=== PATIENT | male | born 1935 | race Caucasian/White ===

== ENCOUNTER 2021-08-21 08:22 | Inpatient (IN) | payer MEDICARE, BC ==
[2021-08-21 08:51] LABS: #Basophils 0.1 thou/uL (0.0-0.2); #Eosinphils 0.6 thou/uL (0.0-0.7); #Lymphocytes 3.5 thou/uL (1.20-3.40); #Monocytes 1.9 thou/uL (0.11-0.59); #Neutrophils 8.3 thou/uL (1.40-6.50); %Basophils 0.6 % (0.0-1.0); %Eosinophils 3.9 % (0.0-10.0); %Lymphocytes 24.5 % (21.0-51.0); %Monocytes 13.2 % (0.0-10.0); %Neutrophils 57.7 % (42.0-75.0); Hemoglobin 10.1 g/dL (14.0-18.0); Mean Corpuscular Hemoglobin 27.9 pg (27.0-31.0); Mean Corpuscular Volume 89.8 fL (78.0-98.0); Mean Platelet Volume 7.1 fL (7.4-10.4); Platelet Count 436 thou/uL (130-400); RBC Distribution Width 19.4 % (11.5-14.5); Red Blood Cell (RBC) Count 3.62 mill/uL (4.70-6.10); White Blood Cell (WBC) Count 14.3 thou/uL (4.8-10.8)
[2021-08-21] MEDS ORDERED: Ondansetron PF 4 MG/2 ML Vial ONE ×2 (09:00→11:16)
[2021-08-21] MEDS ORDERED: Boostrix 0.5 ML (Tdap) VIAL ONE (09:00)
[2021-08-21] MEDS ORDERED: Lidocaine 1% w/Epinephrine 1:100K 20 ML VIAL ONE (09:00)
[2021-08-21 09:14] LABS: ALT (SGPT) 42 U/L (8-55); AST (SGOT) 33 U/L (5-34); Albumin 3.1 g/dL (3.4-4.8); Alkaline Phosphatase 136 U/L (40-110); Anion Gap 15 mmol/L (10-20); BUN (Urea Nitrogen) 28 mg/dL (8.4-25.7); Bilirubin, Total 0.5 mg/dL (0.2-1.2); Calc. Creatinine Clearance 0 mL/min (70-130); Calcium 9.8 mg/dL (7.8-10.44); Carbon Dioxide 24 mmol/L (23-31); Chloride 99 mmol/L (98-107); Globulin 3.7 g/dL (2.4-3.5); Glucose 172 mg/dL (83-110); Potassium 4.2 mmol/L (3.5-5.1); Protein, Total 6.8 g/dL (5.8-8.1); Sodium 134 mmol/L (136-145)
[2021-08-21] MEDS ORDERED: HUM PROTHROMBIN CPLX(PCC)4FACT 2,000 UNIT in Admixture Fee 1 EACH IV SCH (10:00)
[2021-08-21 10:38] LABS: SARS-CoV-2 NAA Rapid Test Not Detected (NotDetected)
[2021-08-21 11:11] LABS: INR-International Normal Ratio 1.2; PTT 31.8 sec (22.9-36.1); Prothrombin Time 14.8 sec (12.0-14.7)
[2021-08-21] MEDS ORDERED: Ondansetron PF 4 MG/2 ML Vial IVP PRN (11:59)
[2021-08-21] MEDS ORDERED: Ondansetron ODT 4 MG TAB PO PRN (11:59)
[2021-08-21] MEDS ORDERED: Morphine 2 MG/ML VIAL SLOW IVP PRN (11:59)
[2021-08-21] MEDS ORDERED: Dextrose 50% Abboject 50 ML SYRINGE SLOW IVP PRN (11:59)
[2021-08-21] MEDS ORDERED: Cyclobenzaprine 10 MG TAB PO PRN (11:59)
[2021-08-21] MEDS ORDERED: hydrALAZINE 20 MG/ML VIAL SLOW IVP PRN (11:59)
[2021-08-21] MEDS ORDERED: Insulin Regular 300 UNITS/3 ML VIAL SC PRN ×2 (11:59)
[2021-08-21] MEDS ORDERED: Dextrose 5% in Water 1,000 ML IV PRN (11:59)
[2021-08-21] MEDS ORDERED: Morphine 4 MG/ML VIAL ONE (12:23)
[2021-08-21] MEDS ORDERED: Morphine 4 MG/ML VIAL SLOW IVP PRN (12:25)
[2021-08-21] MEDS: Acetaminophen 500 MG TAB PO SCH ×2 (12:30→17:35)
[2021-08-21] MEDS: Sodium Chloride 0.9% 1,000 ML IV SCH ×2 (12:35→21:22)
[2021-08-21 13:00] VITALS: BMI 20.2
[2021-08-21] MEDS ORDERED: Diltiazem HCl 125 MG, Admixture Fee 1 EACH in Sodium Chloride 0.9% 100 ML IVPB SCH (15:00)
[2021-08-21] MEDS ORDERED: Metoprolol Tartrate 5 MG/5 ML VIAL ONE (15:09)
[2021-08-21] MEDS ORDERED: Amiodarone 450 MG, Admixture Fee 1 EACH in Dextrose 5% in Water 250 ML IVPB SCH (15:15)
[2021-08-21] MEDS ORDERED: Metoprolol Tartrate 5 MG/5 ML VIAL IVP SCH (15:45)
[2021-08-21 16:13] LABS: Actual Bicarbonate (HCO3a) 12.6 mEq/L (22-28); Base Excess (BEa) -13.4 mEq/L (-2.0 to +3.0); CO2 Tension 29.8 mmHg (35.0-45.0); Calcium, Ionized (arterial) 1.29 mmol/L (1.12-1.30); Hemoglobin (Hb) 10.7 g/dL (14.0-18.0); Potassium - ABG Lab 5.22 mmol/L (3.70-5.30)
[2021-08-21] MEDS ORDERED: Amiodarone 150 MG, Admixture Fee 1 EACH in Dextrose 5% in Water 100 ML IVPB SCH (16:15)
[2021-08-21] MEDS ORDERED: Calcium Chloride 1 GM/10 ML Abboject SYRINGE ONE (16:16)
[2021-08-21] MEDS ORDERED: Sodium Bicarb 50 MEQ/50 ML Abboject 8.4% SYRINGE ONE (16:17)
[2021-08-21 16:25] LABS: pH, Arterial 7.24 (7.35-7.45)
[2021-08-21 16:26] LABS: Puncture Site LBA
[2021-08-21] MEDS ORDERED: Sodium Bicarb 50 MEQ/50 ML Abboject 8.4% SYRINGE IVP SCH (16:45)
[2021-08-21] MEDS ORDERED: Magnesium 2 GM/50 ML 2 GM in Premix Bag 1 BAG IVPB SCH (16:45)
[2021-08-21] MEDS ORDERED: Calcium Chloride 1 GM/10 ML Abboject SYRINGE IVP SCH (16:45)
[2021-08-21] MEDS ORDERED: Lactated Ringer's 500 ML IV SCH (16:45)
[2021-08-21] MEDS ORDERED: Lorazepam 2 MG/ML VIAL SLOW IVP PRN (16:56)
[2021-08-21] MEDS ORDERED: Piperacillin/Tazobactam 3.375 GM in Sodium Chloride 0.9% 100 ML IVPB SCH ×2 (17:00→21:00)
[2021-08-21] MEDS: Morphine 4 MG/ML VIAL SLOW IVP PRN ×7 (17:02→22:46)
[2021-08-21 17:43] LABS: Anion Gap 22 mmol/L (10-20); BUN (Urea Nitrogen) 29 mg/dL (8.4-25.7); Calc. Creatinine Clearance 31 mL/min (70-130); Calcium 10.3 mg/dL (7.8-10.44); Carbon Dioxide 16 mmol/L (23-31); Chloride 103 mmol/L (98-107); Glucose 146 mg/dL (83-110); Potassium 4.9 mmol/L (3.5-5.1); Sodium 136 mmol/L (136-145)
[2021-08-21 17:45] LABS: Lactic Acid 12.9 mmol/L (0.5-2.2)
[2021-08-21] MEDS ORDERED: Famotidine 20 MG TAB PO SCH (21:00)
[2021-08-21 23:14] VITALS: TEMP 97.5
[2021-08-22] MEDS: Acetaminophen 500 MG TAB PO SCH (00:08)
== END 2021-08-22 00:38 | disposition expired | DRG 82 ==
LOC: ERS 08:22 → ERHOLD 09:43 → CCU 11:41
PROVIDERS: ADMIT Specialist; ATTEND Specialist
PROC: 30283B1 Transfusion of Nonautologous 4-Factor Prothrombin Complex Concentrate into Vein, Percutaneous Approach (ICD-10-PCS; principal; 2021-08-21)
DX: S06.5X9A Traumatic subdural hemorrhage with loss of consciousness of unspecified duration, initial encounter (principal); G93.41 Metabolic encephalopathy; A41.9 Sepsis, unspecified organism; Z66 Do not resuscitate; J96.01 Acute respiratory failure with hypoxia; J96.02 Acute respiratory failure with hypercapnia; E87.1 Hypo-osmolality and hyponatremia; I47.1 Supraventricular tachycardia; E87.2 Acidosis; I10 Essential (primary) hypertension; Z20.822 Contact with and (suspected) exposure to COVID-19; I48.91 Unspecified atrial fibrillation; S00.03XA Contusion of scalp, initial encounter; K21.9 Gastro-esophageal reflux disease without esophagitis; W18.30XA Fall on same level, unspecified, initial encounter; E86.1 Hypovolemia; I95.9 Hypotension, unspecified; E87.5 Hyperkalemia; Z79.899 Other long term (current) drug therapy; Z90.49 Acquired absence of other specified parts of digestive tract; Z98.890 Other specified postprocedural states; Z95.1 Presence of aortocoronary bypass graft
CPT/HCPCS: 36415; 36600; 70450; 71045; 71275; 72125; 80053; 82805; 83605; 83880; 84484; 85025; 85379; 85610; 85730; 87040; 90715; 93005; 93010; G0390; J0282; J2060; J2270; J2405; J2543; J3475; J3490; J7050; J7070; J7120; J7168; U0002